=== PATIENT | female | born 1980 | race Caucasian/White ===

== ENCOUNTER 2016-09-08 17:25 | Inpatient (IN) | payer OTHER ==
[~2016-09-08] VITALS: Ht 167.6 cm; Wt 109.1 kg
[2016-09-08 19:03] LABS: ASPARTATE AMINO TRANSFERASE 18 U/L (15-37); BLOOD UREA NITROGEN 12 mg/dL (7-18)
[2016-09-08 19:30] VITALS: BP 140/91
[2016-09-08] MEDS ORDERED: ACETAMINOPHEN 325 MG TABLET ONE (19:54)
[2016-09-08] MEDS ORDERED: SODIUM CITRATE/CITRIC ACID 30 ML UDC ONE (19:54)
[2016-09-08] MEDS ORDERED: METOCLOPRAMIDE 5 MG/ML, 2ML ONE (19:54)
[2016-09-08] MEDS: ACETAMINOPHEN 325 MG TABLET PO PRN (19:58)
[2016-09-08] MEDS ORDERED: MAGNESIUM SULF. PMX 20GM/500ML 500 ML IV PRN (20:56)
[2016-09-08] MEDS ORDERED: LACTATED RINGERS 1,000 ML IV PRN (20:56)
[2016-09-08] MEDS ORDERED: MAGNESIUM SULFATE PMX 2GM/50ML 50 ML IVPB ONE (21:00)
[2016-09-08] MEDS ORDERED: CALCIUM GLUCONATE 0.46MEQ/1ML IVPush ONE (21:00)
[2016-09-08] MEDS ORDERED: BETAMETHASONE 6 MG/ML, 5ML IM SCH (21:00)
[2016-09-08] MEDS ORDERED: MAGNESIUM SULF. PMX 20GM/500ML 500 ML IV ONE (21:01)
[2016-09-08] MEDS ORDERED: LACTATED RINGERS 1,000 ML IV SCH ×2 (21:05→21:30)
[2016-09-08] MEDS ORDERED: OXYTOCIN 30U/ 0.9% NaCL 500ML 500 ML IV SCH (21:05)
[2016-09-08] MEDS ORDERED: LACTATED RINGERS 1,000 ML IVBOLUS ONE (21:30)
[2016-09-08] MEDS ORDERED: SODIUM CITRATE/CITRIC ACID 30 ML UDC PO ONE (21:30)
[2016-09-08] MEDS ORDERED: METOCLOPRAMIDE 5 MG/ML, 2ML IV ONE (21:30)
[2016-09-08] MEDS ORDERED: morphine SULFATE/PF 0.5 MG/ML, 10ML ONE (22:29)
[2016-09-08] MEDS ORDERED: ONDANSETRON 2MG/ML, 2ML ONE (22:40)
[2016-09-08] MEDS ORDERED: PHENYLEPHRINE 10 MG/ML ONE (22:40)
[2016-09-08] MEDS ORDERED: CEFAZOLIN 1,000 MG ONE (22:40)
[2016-09-08] MEDS ORDERED: EPHEDRINE 50 MG/ML, 1ML ONE (22:40)
[2016-09-09] MEDS: LACTATED RINGERS 1,000 ML IV SCH ×3 (00:07→20:07)
[2016-09-09] MEDS: OXYTOCIN 30U/ 0.9% NaCL 500ML 500 ML IV SCH ×3 (00:07→20:07)
[2016-09-09] MEDS ORDERED: LACTATED RINGERS 1,000 ML IV SCH (00:07)
[2016-09-09] MEDS ORDERED: OXYcodone 5 MG/5 ML ORAL.SOL UDC ONE (00:15)
[2016-09-09] MEDS ORDERED: LACTATED RINGERS 1,000 ML IV PRN (00:21)
[2016-09-09] MEDS ORDERED: OXYTOCIN 30U/ 0.9% NaCL 500ML 500 ML ONE (00:28)
[2016-09-09] MEDS ORDERED: METOCLOPRAMIDE 5 MG/ML, 2ML IV PRN (00:30)
[2016-09-09] MEDS ORDERED: OXYcodone 5 MG/5 ML ORAL.SOL UDC PO PRN (00:30)
[2016-09-09] MEDS ORDERED: CALCIUM GLUCONATE 0.46MEQ/1ML IVPush ONE (00:30)
[2016-09-09] MEDS ORDERED: MISOPROSTOL 200 MCG TABLET SL PRN (00:30)
[2016-09-09] MEDS ORDERED: BISACODYL 10 MG SUPP PR PRN (00:30)
[2016-09-09] MEDS ORDERED: DIPHENHYDRAMINE 50 MG/ML, 1ML ONE (02:54)
[2016-09-09] MEDS ORDERED: HYDROmorphone/PF 10 MG/ML, 1ML IVPush PRN (03:00)
[2016-09-09] MEDS ORDERED: DIPHENHYDRAMINE 50 MG/ML, 1ML IVPush PRN (03:00)
[2016-09-09] MEDS ORDERED: OXYcodone/APAP 5/325MG TABLET ONE ×3 (05:20→21:22)
[2016-09-09] MEDS: OXYcodone/APAP 5/325MG TABLET PO PRN ×3 (05:22→21:39)
[2016-09-09 06:35] LABS: ASPARTATE AMINO TRANSFERASE 27 U/L (15-37); BLOOD UREA NITROGEN 11 mg/dL (7-18)
[2016-09-09] MEDS ORDERED: MAGNESIUM SULF. PMX 20GM/500ML 500 ML IV ONE ×2 (09:00→20:20)
[2016-09-09] MEDS: MAGNESIUM SULF. PMX 20GM/500ML 500 ML IV PRN ×2 (09:03→20:25)
[2016-09-09] MEDS ORDERED: DOCUSATE 100 MG CAPSULE ONE (09:07)
[2016-09-09] MEDS ORDERED: PRENATAL VIT/IRON/FA 1 EACH TABLET ONE (09:07)
[2016-09-09] MEDS: DOCUSATE 100 MG CAPSULE PO PRN (09:08)
[2016-09-09] MEDS: PRENATAL VIT/IRON/FA 1 EACH TABLET PO SCH (09:08)
[2016-09-09] MEDS ORDERED: RHOGAM FROM BLOOD BANK 1 NOTE EA IM/IV ONE (18:30)
[2016-09-09] MEDS ORDERED: OXYcodone IR 5MG TABLET ONE (23:08)
[2016-09-09] MEDS: OXYcodone IR 5MG TABLET PO PRN (23:10)
[2016-09-10] MEDS ORDERED: OXYcodone/APAP 5/325MG TABLET ONE (01:16)
[2016-09-10] MEDS: OXYcodone/APAP 5/325MG TABLET PO PRN ×3 (01:18→12:30)
[2016-09-10 04:10] VITALS: BP 122/67
[2016-09-10] MEDS: OXYcodone IR 5MG TABLET PO PRN ×3 (04:37→21:11)
[2016-09-10] MEDS: OXYTOCIN 30U/ 0.9% NaCL 500ML 500 ML IV SCH ×2 (06:07→16:07)
[2016-09-10] MEDS: LACTATED RINGERS 1,000 ML IV SCH ×2 (06:07→16:07)
[2016-09-10 08:15] VITALS: BP 128/68
[2016-09-10] MEDS: PRENATAL VIT/IRON/FA 1 EACH TABLET PO SCH (08:40)
[2016-09-10] MEDS: DOCUSATE 100 MG CAPSULE PO PRN ×2 (08:41→21:11)
[2016-09-10 12:15] VITALS: BP 122/73
[2016-09-10 17:09] VITALS: BP 135/91
[2016-09-10] MEDS: ACETAMINOPHEN 325 MG TABLET PO PRN (17:12)
[2016-09-10 19:25] VITALS: BP 121/71
[2016-09-10 23:30] VITALS: BP 125/76
[2016-09-11] MEDS: LACTATED RINGERS 1,000 ML IV SCH ×3 (02:07→22:07)
[2016-09-11] MEDS: OXYTOCIN 30U/ 0.9% NaCL 500ML 500 ML IV SCH ×3 (02:07→22:07)
[2016-09-11 04:10] VITALS: BP 145/88
[2016-09-11] MEDS: ACETAMINOPHEN 325 MG TABLET PO PRN ×2 (04:16→14:48)
[2016-09-11] MEDS: OXYcodone IR 5MG TABLET PO PRN ×2 (04:16→23:39)
[2016-09-11 07:15] VITALS: BP 117/84
[2016-09-11] MEDS: DOCUSATE 100 MG CAPSULE PO PRN ×2 (08:16→23:39)
[2016-09-11] MEDS: PRENATAL VIT/IRON/FA 1 EACH TABLET PO SCH (08:16)
[2016-09-11] MEDS: OXYcodone/APAP 5/325MG TABLET PO PRN ×3 (08:20→17:43)
[2016-09-11 13:00] VITALS: BP 128/72
[2016-09-11 17:30] VITALS: BP 134/84
[2016-09-11 19:40] VITALS: BP 138/83
[2016-09-11 23:55] VITALS: BP 139/91
[2016-09-12] MEDS: OXYcodone/APAP 5/325MG TABLET PO PRN ×2 (04:06→09:07)
[2016-09-12 04:08] VITALS: BP 142/90
[2016-09-12 07:00] VITALS: BP 135/91
[2016-09-12] MEDS: LACTATED RINGERS 1,000 ML IV SCH (08:07)
[2016-09-12] MEDS: OXYTOCIN 30U/ 0.9% NaCL 500ML 500 ML IV SCH (08:07)
[2016-09-12] MEDS: PRENATAL VIT/IRON/FA 1 EACH TABLET PO SCH (09:06)
[2016-09-12] MEDS: DOCUSATE 100 MG CAPSULE PO PRN (09:06)
[2016-09-12] MEDS ORDERED: OXYC-302 PO (12:59)
[2016-09-12] MEDS: OXYcodone IR 5MG TABLET PO PRN (13:10)
== END 2016-09-12 14:20 | disposition home or self-care (01) | DRG 765 ==
LOC: LDIP 18:17 → 2NE 23:00 → 2NW 09-10 02:14
PROVIDERS: ADMIT Obstetrics & Gynecology Maternal & Fetal Medicine; ATTEND Obstetrics & Gynecology Maternal & Fetal Medicine
PROC: 10D00Z1 Extraction of Products of Conception, Low, Open Approach (ICD-10-PCS; principal; 2016-09-09)
PROC: 0UB70ZZ Excision of Bilateral Fallopian Tubes, Open Approach (ICD-10-PCS; 2016-09-09)
PROC: 3E0334Z Introduction of Serum, Toxoid and Vaccine into Peripheral Vein, Percutaneous Approach (ICD-10-PCS; 2016-09-09)
DX: O14.14 Severe pre-eclampsia complicating childbirth (principal); O36.5930 Maternal care for other known or suspected poor fetal growth, third trimester, not applicable or unspecified; Z37.0 Single live birth; O99.52 Diseases of the respiratory system complicating childbirth; O69.81X0 Labor and delivery complicated by cord around neck, without compression, not applicable or unspecified; J45.909 Unspecified asthma, uncomplicated; O26.893 Other specified pregnancy related conditions, third trimester; D17.9 Benign lipomatous neoplasm, unspecified; Z3A.32 32 weeks gestation of pregnancy; Z90.49 Acquired absence of other specified parts of digestive tract; Z88.6 Allergy status to analgesic agent; Z88.0 Allergy status to penicillin; Z30.2 Encounter for sterilization
CPT/HCPCS: 36415; 80053; 82803; 83615; 83735; 84550; 85025; 85461; 86850; 86870; 86880; 86900; 86922; 86923; 88302; J0610; J0690; J2274; J2405; J2790; J2370; J2765; J3475; J7120

== ENCOUNTER 2017-08-03 07:22 | Emergency (ER) | payer OTHER ==
[~2017-08-03] VITALS: Ht 167.6 cm; Wt 104.2 kg
[~2017-08-03 07:22] MED LIST: OXYC-302 PO
[2017-08-03 07:23] VITALS: BP 134/85
== END 2017-08-03 08:12 | disposition home or self-care (01) ==
LOC: ED 07:46
DX: H66.002 Acute suppurative otitis media without spontaneous rupture of ear drum, left ear (principal); J45.909 Unspecified asthma, uncomplicated; Z90.49 Acquired absence of other specified parts of digestive tract
CPT/HCPCS: 99283